=== PATIENT | female | born 1990 | race Caucasian/White ===

== ENCOUNTER 2020-03-04 05:39 | Inpatient (IN) ==
[2020-03-04] MEDS ORDERED: Famotidine 20 MG/2 ML VIAL IVP ONE (05:46)
[2020-03-04] MEDS ORDERED: Ringers Solution, Lactated 1,000 ML IVC ONE (05:46)
[2020-03-04] MEDS ORDERED: Naloxone 0.4 MG/ML INJ IVP PRN ×2 (05:46→11:24)
[2020-03-04] MEDS ORDERED: Metoclopramide 10 MG/2 ML VIAL IVP ONE (05:46)
[2020-03-04] MEDS ORDERED: *HR* Morphine Sulfate/PF 10 MG/10 ML AMPUL ONE (06:19)
[2020-03-04] MEDS ORDERED: EPHEDrine 50 MG/ML VIAL ONE (06:19)
[2020-03-04] MEDS ORDERED: *HR* FentaNYL (PF) 100 MCG/2 ML VIAL ONE (06:19)
[2020-03-04 06:26] LABS: Basophils % 0.3 %; Eosinophils # 0.1 K/mcL (0.0-0.6); Eosinophils % 1.4 %; Hemoglobin 12.5 g/dL (11.5-15.4); Lymphocytes # 1.4 K/mcL (0.6-4.6); Lymphocytes % 13.7 %; Mean Corpuscular HGB Conc 34.7 g/dL (31.6-35.5); Mean Corpuscular Hemoglobin 34.7 pg (28.0-33.3); Mean Platelet Volume 8.8 fL (9.4-12.4); Monocytes # 0.8 K/mcL (0.0-1.3); Monocytes % 7.4 %; Neutrophils # 7.9 K/mcL (1.6-8.9); Platelet Count 174 K/mcL (140-400); Red Cell Distribution Width 12.9 % (11.5-14.5); Segmented Neutrophils % 76.2 %; White Blood Count 10.3 K/mcL (4.3-11.1)
[2020-03-04 06:35] LABS: Amphetamine Screen,Urine Negative ng/mL (Cutoff=1000); Barbiturate Screen,Urine Negative ng/mL (Cutoff=200); Benzodiazepines Screen,Urine Negative ng/mL (Cutoff=300); Cannabinoid Screen,Urine Negative ng/mL (Cutoff = 50); Cocaine Screen,Urine Negative ng/mL (Cutoff= 300); Opiate Screen,Urine Negative ng/mL (Cutoff=300); Phencyclidine Screen,Urine Negative ng/mL (Cutoff=25)
[2020-03-04] MEDS ORDERED: *HR* OxyCODONE Immed Rel 5 MG TABLET PO PRN (06:47)
[2020-03-04] MEDS ORDERED: Acetaminophen IV 1,000 MG/100 ML INFUS..BTL IVPB PRN (06:47)
[2020-03-04] MEDS ORDERED: *HR* HYDROmorphone PF 0.5 MG/0.5 ML SYRINGE IVP PRN (06:47)
[2020-03-04] MEDS ORDERED: Ondansetron 4 MG/2 ML VIAL IVP PRN ×2 (06:47→11:24)
[2020-03-04] MEDS ORDERED: CeFAZolin 2,000 MG/50 ML BAG IVPB ONE (07:05)
[2020-03-04] MEDS ORDERED: Ringers Solution, Lactated 1,000 ML ONE (07:21)
[2020-03-04] MEDS ORDERED: Oxytocin 20 units/ LR 1000 mL 20 UNIT/1,000 ML BAG IVC ONE (07:22)
[2020-03-04] MEDS ORDERED: Sennosides 8.6 MG TABLET PO PRN (11:24)
[2020-03-04] MEDS ORDERED: Oxytocin 20 units/ LR 1000 mL 20 UNIT/1,000 ML BAG IVC SCH ×2 (11:24)
[2020-03-04] MEDS ORDERED: Metoclopramide 10 MG/2 ML VIAL IVP PRN (11:24)
[2020-03-04] MEDS ORDERED: Ringers Solution, Lactated 1,000 ML IVC SCH (11:24)
[2020-03-04] MEDS ORDERED: Rho Immune Globulin 1,500 UNIT SYRINGE IM ONE (11:24)
[2020-03-04] MEDS: Prenatal Vit/FA 1 EACH TABLET PO SCH (12:25)
[2020-03-04] MEDS: Ibuprofen 600 MG TABLET PO PRN ×2 (17:02→22:58)
[2020-03-04] MEDS: *HR* OxyCODONE/APAP 5/325 TABLET PO PRN ×2 (18:32→22:58)
[2020-03-04] MEDS: Simethicone 80 MG TAB.CHEW PO PRN (20:05)
[2020-03-05] MEDS: *HR* OxyCODONE/APAP 5/325 TABLET PO PRN ×4 (04:08→20:07)
[2020-03-05] MEDS: Ibuprofen 600 MG TABLET PO PRN ×3 (07:04→18:49)
[2020-03-05 08:15] LABS: Basophils % 0.2 %; Eosinophils % 0.4 %; Hematocrit 30.6 % (35.3-44.9); Immature Granulocytes % 1.1 % (0-4); Lymphocytes # 0.7 K/mcL (0.6-4.6); Lymphocytes % 7.6 %; Mean Corpuscular Hemoglobin 34.5 pg (28.0-33.3); Mean Corpuscular Volume 98.7 fL (83.0-100.0); Mean Platelet Volume 8.9 fL (9.4-12.4); Monocytes # 0.8 K/mcL (0.0-1.3); Monocytes % 8.6 %; Neutrophils # 7.7 K/mcL (1.6-8.9); Platelet Count 167 K/mcL (140-400); Segmented Neutrophils % 82.1 %; White Blood Count 9.3 K/mcL (4.3-11.1)
[2020-03-05 08:16] LABS: Hemoglobin 10.7 g/dL (11.5-15.4)
[2020-03-05] MEDS: Prenatal Vit/FA 1 EACH TABLET PO SCH (08:44)
[2020-03-05] MEDS: Simethicone 80 MG TAB.CHEW PO PRN ×2 (08:45→18:49)
[2020-03-05] MEDS ORDERED: Lanolin 7 G OINT...G. TP PRN (08:57)
[2020-03-06] MEDS: *HR* OxyCODONE/APAP 5/325 TABLET PO PRN ×3 (00:06→08:37)
[2020-03-06 08:16] VITALS: BP 111/68
[2020-03-06] MEDS: Prenatal Vit/FA 1 EACH TABLET PO SCH (08:37)
[2020-03-06] MEDS: Simethicone 80 MG TAB.CHEW PO PRN (08:37)
[2020-03-06] MEDS: Ibuprofen 600 MG TABLET PO PRN (12:03)
== END 2020-03-06 13:00 | disposition home or self-care (01) | DRG 785 ==
LOC: 1NENULAB 05:39 → 1NENUOBS 11:06
PROVIDERS: ADMIT Student in an Organized Health Care Education/Training Program; ATTEND Student in an Organized Health Care Education/Training Program